=== PATIENT | male | born 1985 ===

== ENCOUNTER 2024-10-17 06:00 | Day surgery (SDC) | payer OTHER ==
[2024-10-09 09:24] LABS: URINE APPEARANCE Clear; URINE BILIRRUBIN Negative (NEGATIVE); URINE BLOOD Negative; URINE COLOR Yellow; URINE GLUCOSE Negative (NEGATIVE); URINE KETONE Negative (NEGATIVE); URINE LEUKOCYTE Negative; URINE NITRATE Negative; URINE PROTEIN Negative (NEGATIVE); URINE UROBILINOGEN 0.2 E.U./dl
[2024-10-09 09:25] VITALS: BP 126/85
[2024-10-09 09:25] LABS: URINE BACTERIA 13.4 uL (0.0-1933); URINE EPITHELIAL CELLS 1.7 uL (0.0-38.8); URINE RBC 7.5 uL (0.0-20.8); URINE WBC 3.1 uL (0.0-23.2)
[2024-10-09 09:32] LABS: HEMATOCRIT 48.2 % (39.0-48.0); HEMOGLOBIN 16.6 g/dL (13-16.00); MEAN CORPUSCULAR HEMOGLOBIN 30.7 pg (27.00-32.0); MEAN CORPUSCULAR HGB CONC 34.5 g/dl (32.0-36.0); PLATELET COUNT 209 K/uL (150-450); RED BLOOD COUNT 5.42 M/uL (4.00-6.00); RED CELL DISTRIBUTION WIDTH 13.7 % (11.5-14.5)
[2024-10-09 09:59] LABS: PARTIAL THROMBOPLASTIN TIME 27.8 SECONDS (22.0-34.0); PROTHROMBIN TIME 10.9 SECONDS (9.0-11.5)
[2024-10-09 10:30] LABS: ALBUMIN 4.1 gm/dL (3.4-5.0); BILIRUBIN TOTAL 0.41 mg/dL (0.3-1.2); CALCIUM 9.4 mg/dL (8.5-10.1); CREATININE SERUM 0.95 mg/dL (0.70-1.30); GFR 87.37; GLOBULINA 3.5 G/DL (2.4-3.5); POTASSIUM 4.37 mEq/L (3.5-5.1); TOTAL PROTEIN 7.6 gm/dL (6.4-8.2)
[~2024-10-17] VITALS: Ht 172.7 cm; Wt 83.9 kg
[2024-10-17] MEDS ORDERED: TRAM1TAB98 PO (07:31)
[2024-10-17] MEDS ORDERED: MIRALAX17 GM PO (07:31)
[2024-10-17] MEDS ORDERED: SURFAK240 M1 PO (07:32)
[2024-10-17] MEDS ORDERED: NEURONTIN600 M1 PO (07:33)
[2024-10-17] MEDS ORDERED: ENOXAPARIN SODIUM 40 MG/0.4 ML SYRINGE SUBCUTANEO ONE (07:58)
[2024-10-17] MEDS ORDERED: CEFAZOLIN SODIUM 1,000 MG VIAL ONE (07:59)
[2024-10-17] MEDS ORDERED: BUPIVACAINE HCL/MPF 0.5% 30ML VIAL ONE (10:04)
[2024-10-17] MEDS ORDERED: MORPHINE SULFATE 4 MG/ML VIAL IV ONE ×2 (13:15→13:45)
== END 2024-10-17 15:15 | disposition home or self-care (01) ==
LOC: CIR.AMB 06:00
PROVIDERS: ATTEND Surgery
DX: K40.90 Unilateral inguinal hernia, without obstruction or gangrene, not specified as recurrent (principal); K42.0 Umbilical hernia with obstruction, without gangrene; S31.109A Unspecified open wound of abdominal wall, unspecified quadrant without penetration into peritoneal cavity, initial encounter; Z91.09 Other allergy status, other than to drugs and biological substances
CPT/HCPCS: 49650; 49594; 14301; 15734; C1781